=== PATIENT | male | born 1965 | race Caucasian/White ===

== ENCOUNTER 2018-08-31 08:41 | Emergency (ER) | payer MEDICAID ==
[~2018-08-31] VITALS: Ht 167.6 cm; Wt 91.0 kg
[~2018-08-31 08:41] MED LIST: CEPH500C2 PO; NAPR-1176 PO; SULFAMETHOXAZOLE
[2018-08-31] MEDS ORDERED: KETOROLAC 60MG/2ML VIAL IM ONE (09:15)
[2018-08-31] MEDS ORDERED: CYCLOBENZAPRINE 10MG TABLET PO ONE (09:15)
[2018-08-31 10:38] VITALS: BP 155/83
== END 2018-08-31 10:46 | disposition home or self-care (01) ==
LOC: ER 09:07
DX: M25.511 Pain in right shoulder (principal)
CPT/HCPCS: 73030; 96372; 99284; J1885

== ENCOUNTER 2019-05-19 05:52 | Emergency (ER) | payer MEDICAID ==
[~2019-05-19] VITALS: Ht 160 cm; Wt 89.0 kg
[2019-05-19] MEDS ORDERED: KETOROLAC 30MG/ML VIAL IM ONE (07:15)
[2019-05-19] MEDS ORDERED: LIDOCAINE HCL/PF 1% 10 MG/ML 5ML VIAL IJ ONE (07:15)
[2019-05-19 09:00] VITALS: BP 138/74
== END 2019-05-19 09:00 | disposition home or self-care (01) ==
LOC: ER 05:52
DX: L02.31 Cutaneous abscess of buttock (principal)
CPT/HCPCS: 10060; 87070; 87186; 87205; 96372; 99283; J1885; J3490

== ENCOUNTER 2019-11-10 07:55 | Emergency (ER) | payer MEDICAID ==
[~2019-11-10] VITALS: Ht 160 cm; Wt 91.0 kg
[2019-11-10 08:04] VITALS: BP 135/74
[2019-11-10] MEDS ORDERED: KETOROLAC 60MG/2ML VIAL IM STA (08:30)
[2019-11-10] MEDS ORDERED: LIDOCAINE 1%/EPI 1:100,000 10 ML VIAL IJ ONE (08:30)
[2019-11-10] MEDS ORDERED: LIDOCAINE HCL/EPINEPHRINE 1%-EPI 1:100,000 20 ML VIAL INFIL NR (08:45)
[2019-11-10] MEDS ORDERED: BACITRACIN ZINC OINT UDPKT TOP ONE (09:15)
== END 2019-11-10 09:42 | disposition home or self-care (01) ==
LOC: ER 07:55
DX: L02.31 Cutaneous abscess of buttock (principal); Z98.890 Other specified postprocedural states; Z79.899 Other long term (current) drug therapy
CPT/HCPCS: 10060; 96372; 99283; J1885; J3490; Z7610

== ENCOUNTER 2020-08-07 02:31 | Emergency (ER) | payer SELFPAY ==
[~2020-08-07] VITALS: Ht 165.1 cm; Wt 86.0 kg
[2020-08-07 02:35] VITALS: BP 163/85
== END 2020-08-07 05:49 | disposition left against medical advice (07) ==
LOC: ER 02:31
DX: Z53.21 Procedure and treatment not carried out due to patient leaving prior to being seen by health care provider (principal); Z98.890 Other specified postprocedural states

== ENCOUNTER 2024-07-14 05:41 | Emergency (ER) | payer MEDICAID ==
[~2024-07-14] VITALS: Ht 157.5 cm; Wt 94.0 kg
[2024-07-14 06:31] VITALS: O2SAT 100
[2024-07-14 08:17] VITALS: BP 128/74; PULSE 70; RESP 14; TEMP 36.94740; O2SAT 99
== END 2024-07-14 08:20 | disposition home or self-care (01) ==
LOC: ER 05:56
DX: I82.611 Acute embolism and thrombosis of superficial veins of right upper extremity (principal); E11.9 Type 2 diabetes mellitus without complications; I10 Essential (primary) hypertension; Z98.890 Other specified postprocedural states
CPT/HCPCS: 93971; 99284

== ENCOUNTER 2025-09-19 06:05 | Emergency (ER) | payer MEDICAID ==
[~2025-09-19] VITALS: Ht 162.6 cm; Wt 91.0 kg
[2025-09-19 06:15] VITALS: TEMP 36.8; O2SAT 98
[2025-09-19] MEDS: ACETAMINOPHEN WITH CODEINE 300/30MG TABLET PO ONE (06:59)
[2025-09-19] MEDS: IBUPROFEN 800MG TABLET PO ONE (06:59)
[2025-09-19] MEDS ORDERED: T3 PO (08:26)
[2025-09-19] MEDS ORDERED: IBUP-2028 PO (08:26)
[2025-09-19 08:50] VITALS: BP 149/77; PULSE 60; RESP 12; O2SAT 96
== END 2025-09-19 08:53 | disposition home or self-care (01) ==
LOC: ER 06:05
DX: M54.42 Lumbago with sciatica, left side (principal); E11.9 Type 2 diabetes mellitus without complications; K76.0 Fatty (change of) liver, not elsewhere classified
CPT/HCPCS: 72100; 99283